=== PATIENT | male | born 1970 | race African-American/Black ===

== ENCOUNTER 2020-12-25 06:05 | Emergency (ER) | payer MEDICAID, OTHER ==
[~2020-12-25] VITALS: Ht 170.2 cm; Wt 65.8 kg
--- NOTE | 2020-12-25 06:24 | NUR ---
[facility] AND [employer] FROM [place] FOR [facility]. PT IS REQUESTING VOLUNTARY PSYCH ADMISSION. PT WAS PLACED IN BED 15 ER. UNDER SUPERVISION OF A SITTER. SI PRECAUTION IMPLEMENTED . VSS. WILL CONT TO MONITOR ,
[2020-12-25 07:00] LABS: BILIRUBIN,URINE NEGATIVE (NEGATIVE); COLOR,URINE YELLOW (YELLOW); LEUKOCYTE ESTERASE ,URINE SMALL (NEGATIVE); NITRITE, URINE NEGATIVE (NEGATIVE); PH,URINE 5.5 (5.0-8.0); PROTEIN,URINE NEGATIVE (NEGATIVE); UGLUCOSE NEGATIVE (NEGATIVE); UROBILINOGEN,URINE 0.2 EU/dL (0.2)
[2020-12-25 07:39] LABS: BASOPHILS # (AUTO) 0.1 K/uL (0.0-0.2); BASOPHILS % (AUTO) 1.3 % (0.0-2.0); EOSINOPHILS % (AUTO) 10.1 % (0.0-6.0); HEMATOCRIT 43 % (39-51); HEMOGLOBIN 14.5 g/dL (13.5-17.5); LYMPHOCYTES # (AUTO) 2.9 K/uL (0.8-4.8); LYMPHOCYTES % (AUTO) 42.7 % (20.0-44.0); MEAN CORPUSCULAR HGB CONC 34 g/dl (31.0-36.0); MEAN CORPUSCULAR VOLUME 87 fL (80-96); MONOCYTES # (AUTO) 0.5 K/uL (0.1-1.30); NEUTROPHILS # (AUTO) 2.7 K/uL (1.8-8.9); NEUTROPHILS % (AUTO) 38.9 % (43.0-81.0); RED BLOOD CELL COUNT(AUTO) 4.97 MIL/uL (4.5-6.0); WHITE BLOOD COUNT (AUTO) 6.9 K/uL (4.3-11.0)
[2020-12-25 07:40] LABS: ALANINE AMINOTRANSFERASE 21 U/L (12-78); ALBUMIN 3.4 g/dL (3.4-5.0); ALCOHOL, BLOOD < 3 mg/dL (0-0); ALKALINE PHOSPHATASE 114 U/L (46-116); ASPARTATE AMINOTRANSFERASE 25 U/L (15-37); BILIRUBIN,DIRECT 0.1 mg/dL (0.0-0.2); BILIRUBIN,TOTAL 0.3 mg/dL (0.2-1.0); CALCIUM, SERUM 9.2 mg/dL (8.5-10.1); CARBON DIOXIDE 30 mmol/L (21-32); CHLORIDE 105 mmol/L (98-107); CREATININE 1.1 mg/dL (0.6-1.3); GLUCOSE 77 mg/dL (74-106); POTASSIUM 4.4 mmol/L (3.5-5.1); SODIUM SERUM 141 mmol/L (136-145); TOTAL PROTEIN, SERUM 8.6 g/dL (6.4-8.2); UREA NITROGEN, BLOOD 12 mg/dL (7-18)
[2020-12-25 07:58] LABS: ACETAMINOPHEN < 10 ug/ml (10-30)
--- NOTE | 2020-12-25 08:54 | NUR ---
Plan: JACKSON faxed clinicals to [facility] [[employer] [place] [address] FAX:[phone]] for inpatient psychiatric treatment.
[2020-12-25 09:02] LABS: BACTERIA,URINE Few /HPF (None Seen); RBC,URINE 0-2 /HPF (0-2); SQUAMOUS EPITHELIAL CELL,UR Rare /HPF (None Seen); WBC,URINE TOO NUMEROUS TO COUN /HPF (0-3)
[2020-12-25 09:06] LABS: PLATELET COUNT (AUTO) 403 K/uL (150-450)
--- NOTE | 2020-12-25 14:09 | NUR ---
Received a call from [facility] (socal intake) Patient is accepted at [facility] under Dr. Singh number for report [phone] [address].
--- NOTE | 2020-12-25 14:20 | NUR ---
CALLED [facility] AND SET UP BLS TRANSPORT. ETA 1600
[2021-01-08 08:33] VITALS: BP 120/83
== END 2020-12-25 15:00 ==
LOC: ER 06:07
DX: R45.851 Suicidal ideations (principal); F15.10 Other stimulant abuse, uncomplicated; Z59.02 Unsheltered homelessness; F31.9 Bipolar disorder, unspecified; Z91.14 Patient's other noncompliance with medication regimen; Z20.822 Contact with and (suspected) exposure to COVID-19
CPT/HCPCS: 36415; 80048; 80076; 80143; 80307; 80320; 81001; 85025; 87077; 87086; 87426; 99285; C9803; G0480

== ENCOUNTER 2021-01-26 04:09 | Emergency (ER) | payer OTHER ==
[~2021-01-26] VITALS: Ht 170.2 cm; Wt 65.8 kg
[2021-01-26 04:18] VITALS: BP 131/88
[2021-01-26] MEDS ORDERED: AZITHROMYCIN 250 MG TABLET PO ONE (04:30)
[2021-01-26] MEDS ORDERED: CEFTRIAXONE 500 MG VIAL IM ONE (04:30)
[2021-01-26] MEDS ORDERED: AZITHROMYCIN 250 MG TABLET ONE (04:31)
[2021-01-26] MEDS ORDERED: CEFTRIAXONE 500 MG VIAL ONE (04:31)
[2021-01-26] MEDS ORDERED: LIDOCAINE /MPF 1% VIAL 5 ML VIAL ONE (04:32)
[2021-01-26] MEDS ORDERED: LEVO500T90 PO (05:11)
--- NOTE | 2021-01-26 06:06 | NUR ---
Patient discharged to home in stable condition. Written and verbal after care instructions given. Patient verbalizes understanding of instruction.
== END 2021-01-26 06:06 | disposition home or self-care (01) ==
LOC: ER 04:12 → EDBD 04:12 → ER 06:06
DX: A64 Unspecified sexually transmitted disease (principal); F32.9 Major depressive disorder, single episode, unspecified; F17.200 Nicotine dependence, unspecified, uncomplicated; Z88.8 Allergy status to other drugs, medicaments and biological substances; Z59.00 Homelessness unspecified
CPT/HCPCS: 87491; 87591; 96372; 99283; J0696; J3490